=== PATIENT | female | born 1965 | race Caucasian/White ===

== ENCOUNTER 2017-08-07 11:10 | Day surgery (SDC) | payer OTHER ==
[~2017-08-07] VITALS: Ht 157.5 cm; Wt 81.8 kg
[~2017-08-07 11:10] MED LIST: FLOMAX0.4 MG PO
[2017-08-07 12:15] VITALS: BP 131/81
[2017-08-07 16:00] VITALS: BP 134/74
[2017-08-07 16:45] VITALS: BP 137/76
== END 2017-08-07 17:00 | disposition home or self-care (01) ==
LOC: SDC 11:10
DX: N20.1 Calculus of ureter (principal); Z87.442 Personal history of urinary calculi; Z87.891 Personal history of nicotine dependence; Z87.440 Personal history of urinary (tract) infections; Z88.5 Allergy status to narcotic agent
CPT/HCPCS: 74000; 76000; C1876; J0131; J1100; J1170; J1885; J2250; J2405; J3010